=== PATIENT | male | born 1950 | race Caucasian/White ===

== ENCOUNTER 2022-07-17 09:28 | Emergency (ER) | payer OTHER ==
[2022-07-17] MEDS ORDERED: Boostrix 0.5 ML (Tdap) VIAL (>/=7 yrs of age) ONE (10:00)
[2022-07-17 10:49] LABS: #Basophils 0.1 thou/uL (0.0-0.2); #Eosinphils 0.2 thou/uL (0.0-0.7); #Lymphocytes 1.7 thou/uL (1.20-3.40); #Monocytes 0.7 thou/uL (0.11-0.59); #Neutrophils 5.2 thou/uL (1.40-6.50); %Basophils 1.5 % (0.0-1.0); %Eosinophils 2.4 % (0.0-10.0); %Lymphocytes 21.8 % (21.0-51.0); %Monocytes 8.4 % (0.0-10.0); Hemoglobin 13.1 g/dL (14.0-18.0); Mean Corpuscular HGB CONC 31.1 g/dL (32.0-36.0); Mean Corpuscular Hemoglobin 28.3 pg (27.0-31.0); Mean Corpuscular Volume 91.1 fL (78.0-98.0); Mean Platelet Volume 8.4 fL (7.4-10.4); Platelet Count 335 thou/uL (130-400); Red Blood Cell (RBC) Count 4.61 mill/uL (4.70-6.10); White Blood Cell (WBC) Count 7.9 thou/uL (4.8-10.8)
[2022-07-17 10:58] LABS: ALT (SGPT) 23 U/L (8-55); AST (SGOT) 23 U/L (5-34); Albumin 3.5 g/dL (3.4-4.8); Alkaline Phosphatase 78 U/L (40-110); Anion Gap 18 mmol/L (10-20); BUN (Urea Nitrogen) 30 mg/dL (8.4-25.7); Bilirubin, Total 0.2 mg/dL (0.2-1.2); Calc. Creatinine Clearance 0 mL/min (70-130); Calcium 8.8 mg/dL (7.8-10.44); Carbon Dioxide 19 mmol/L (23-31); Chloride 105 mmol/L (98-107); Estimated GFR 62; Globulin 3.3 g/dL (2.4-3.5); Glucose 355 mg/dL (83-110); Potassium 3.8 mmol/L (3.5-5.1); Protein, Total 6.8 g/dL (5.8-8.1); Sodium 138 mmol/L (136-145)
[2022-07-17] MEDS ORDERED: Acetaminophen/Codeine 30-300mg Tablet ONE (11:47)
[2022-07-17] MEDS ORDERED: Clindamycin 150 MG CAP ONE (11:47)
[2022-07-17] MEDS ORDERED: Calcium Carbonate 500 MG ChewTAB ONE (11:51)
[2022-07-17] MEDS ORDERED: Ondansetron ODT 4 MG TAB ONE (11:51)
== END 2022-07-17 12:15 ==
LOC: NAV ERS 09:28
DX: L03.031 Cellulitis of right toe (principal); E11.65 Type 2 diabetes mellitus with hyperglycemia; J43.9 Emphysema, unspecified; E11.9 Type 2 diabetes mellitus without complications; I10 Essential (primary) hypertension; Z87.891 Personal history of nicotine dependence; Z79.4 Long term (current) use of insulin
CPT/HCPCS: 36416; 80053; 83605; 85025; 90471; 90715; 96360; Q0162